=== PATIENT | male | born 1985 | race Hispanic/Latino ===

== ENCOUNTER 2018-06-23 20:27 | Emergency (ER) | payer SELFPAY ==
[2018-06-23] MEDS ORDERED: NACL 0.9% 1000 ML 1,000 ML IV ONE (21:04)
[2018-06-23] MEDS ORDERED: DILAUDID IV ONE (21:04)
--- NOTE | 2018-06-23 21:05 | Emergency Department Report ---
ED General Adult HPI - General Chief complaint: Abdominal Pain Stated complaint: CLOTTING ISSUES Time Seen by Provider: 06/23/18 20:48 Source: patient, EMS (ems notes not available at time of chart dictation), RN notes reviewed, old records reviewed Mode of arrival: Stretcher Limitations: Physical Limitation - History of Present Illness Initial comments: This is a 33-year-old gentleman. The patient has a past medical history of polycythemia vera, chronic pain syndrome, reported history DVT in his right groin, right leg, left arm, and follows with generation mechanic helper, Dr. Nguyen He reports that he does not have an IVC filter. Apparently, the patient was recently hospitalized at [facility], for overdose of uncertain intent. As per care management's documentation, patient was apparently on a toilet, when he allegedly injected 30 mg of Roxicodone into his right antecubital fossa, and became hypoxic, and then fell over onto the left side of his face and left hand. The patient was placed on a 1013 for overdose of uncertain intent. The patient reports that he currently takes systemic anticoagulation, xarelto The patient was medically cleared, and discharged to a psychiatric facility. The patient was sent to the ER today for medical clearance for history of hypertension, with a blood pressure in the 200s at the psychiatric facility. The patient reports that a few days ago, Friday, he developed worsened pain in his right groin and lower abdomen. It is now mostly improved. He currently denies headache, neck pain, chest pain, has persistent lower abdominal pain, and persistent right groin pain. The pain is sharp, burning, aching, increases with palpation and decreases with rest. Patient reports he recently had outpatient ultrasound and possibly MRI, outpatient radiology facility, which demonstrate a presence of "blood clots." He believes that he had a CT scan of the chest recently, which was "negative for blood clots." He reports that he thinks his last CT scan of the abdomen and pelvis was in April, but is not certain. -: Gradual, days(s) Location: abdomen, left, right, lower extremity Radiation: extremity Quality: aching Consistency: intermittent Improves with: medication, rest Worsens with: movement Associated Symptoms: other (chronic pain, anxiety). denies: confusion, chest pain, cough, diaphoresis, fever/chills, headaches, loss of appetite, malaise, nausea/vomiting, rash, seizure, shortness of breath, syncope, weakness - Related Data Home Medications Medication Instructions Recorded Confirmed Last Taken Apixaban [Eliquis] 5 mg PO BID 06/23/18 06/23/18 Unknown Dextroamphetamine/Amphetamine 15 mg PO DAILY 06/23/18 06/23/18 Unknown [Adderall] Docusate Sodium [Colace] 100 mg PO BID PRN 06/23/18 06/23/18 Unknown Ferrous Sulfate [Feosol] 325 mg PO QDAY 06/23/18 06/23/18 Unknown Folic Acid [Folvite] 1 mg PO QDAY 06/23/18 06/23/18 Unknown Gabapentin [Neurontin] 400 mg PO TID 06/23/18 06/23/18 Unknown Ondansetron [Zuplenz] 4 mg PO Q8H PRN 06/23/18 06/23/18 Unknown Pantoprazole [Protonix] 40 mg PO BID 06/23/18 06/23/18 Unknown Prazosin [Minipress] 1 mg PO BID 06/23/18 06/23/18 Unknown Rivaroxaban [Xarelto] 20 mg PO QDAY 06/23/18 06/23/18 Unknown Sucralfate [Carafate] 1 gm PO ACHS 06/23/18 06/23/18 Unknown clonazePAM [Klonopin] 1 tab PO BID 06/23/18 06/23/18 Unknown Allergies Allergy/AdvReac Type Severity Reaction Status Date / Time amoxicillin Allergy Hives Verified 06/23/18 21:14 hydrocodone Allergy Itching Verified 06/23/18 21:14 ED Review of Systems ROS: Stated complaint: CLOTTING ISSUES Other details as noted in HPI Constitutional: denies: fever, malaise, weakness Eyes: denies: eye discharge ENT: denies: epistaxis Respiratory: denies: cough Cardiovascular: denies: chest pain Gastrointestinal: abdominal pain Genitourinary: denies: dysuria Musculoskeletal: arthralgia, myalgia. denies: back pain Skin: denies: lesions Neurological: denies: headache Psychiatric: anxiety ED Past Medical Hx - Medications Home Medications: Home Medications Medication Instructions Recorded Confirmed Last Taken Type Apixaban [Eliquis] 5 mg PO BID 06/23/18 06/23/18 Unknown History Dextroamphetamine/Amphetamine 15 mg PO DAILY 06/23/18 06/23/18 Unknown History [Adderall] Docusate Sodium [Colace] 100 mg PO BID PRN 06/23/18 06/23/18 Unknown History Ferrous Sulfate [Feosol] 325 mg PO QDAY 06/23/18 06/23/18 Unknown History Folic Acid [Folvite] 1 mg PO QDAY 06/23/18 06/23/18 Unknown History Gabapentin [Neurontin] 400 mg PO TID 06/23/18 06/23/18 Unknown History Ondansetron [Zuplenz] 4 mg PO Q8H PRN 06/23/18 06/23/18 Unknown History Pantoprazole [Protonix] 40 mg PO BID 06/23/18 06/23/18 Unknown History Prazosin [Minipress] 1 mg PO BID 06/23/18 06/23/18 Unknown History Rivaroxaban [Xarelto] 20 mg PO QDAY 06/23/18 06/23/18 Unknown History Sucralfate [Carafate] 1 gm PO ACHS 06/23/18 06/23/18 Unknown History clonazePAM [Klonopin] 1 tab PO BID 06/23/18 06/23/18 Unknown History ED Physical Exam - General Limitations: Physical Limitation General appearance: alert, in no apparent distress - Head Head exam: Present: atraumatic, normocephalic - Eye Eye exam: Present: normal appearance, EOMI. Absent: nystagmus - ENT ENT exam: Present: normal exam, normal orophraynx, mucous membranes moist, normal external ear exam - Neck Neck exam: Present: normal inspection, full ROM. Absent: tenderness, mening ismus - Respiratory Respiratory exam: Present: normal lung sounds bilaterally. Absent: respiratory distress - Cardiovascular Cardiovascular Exam: Present: regular rate, normal rhythm, normal heart sounds. Absent: bradycardia, tachycardia, irregular rhythm, systolic murmur, diastolic murmur, rubs, gallop - GI/Abdominal GI/Abdominal exam: Present: soft. Absent: distended, tenderness, guarding, rebound, rigid, pulsatile mass - Rectal Rectal exam: Present: deferred - exam: Present: normal inspection, other (chaperoned by nurse Ghada Pardo). Absent: testicular tenderness External exam: Present: normal external exam - Extremities Exam Extremities exam: Present: normal inspection, full ROM, tenderness (his right proximal groin tenderness.), other (2+ pulses noted in the bilateral upper, lower extremities. Compartments soft. No long bony tenderness. The pelvis is stable.) - Back Exam Back exam: Present: normal inspection, full ROM. Absent: tenderness, CVA tenderness (R), paraspinal tenderness, vertebral tenderness - Neurological Exam Neurological exam: Present: alert, oriented X3, CN II-XII intact, other (Extraocular movements intact. Tongue midline. No facial droop. Facial sensation intact to light touch in the V1, V2, V3 distribution bilaterally. 5 and 5 strength in 4 extremities.. Sensation is intact to light touch in 4 extremities.). Absent: motor sensory deficit - Psychiatric Psychiatric exam: Present: anxious - Skin Skin exam: Present: warm, dry, intact, normal color. Absent: rash ED Course Vital Signs 06/23/18 06/23/18 20:49 21:04 Temperature 98.2 F Pulse Rate 91 H Respiratory 21 16 Rate Blood Pressure 153/95 Blood Pressure 153/95 [Right] O2 Sat by Pulse 99 98 Oximetry - Reevaluation(s) Reevaluation #1: 06/23/18 22:07 Differential diagnosis, including without limited to: Resolved hypertension secondary to pain, arterial occlusion, venous occlusion, thrombophlebitis Assessment and plan: 33-year-old gentleman with reported history of multiple clots, currently on systemic anticoagulation, with resolving subacute abdominal and groin pain. Pulses are palpated in the upper, lower extremities bilaterally. Compartments soft. Has mildly elevated blood pressure in the 150s, which is not require emergent intervention at this time. We will treat the patient's pain. We are attempting to obtain old medical records. We will repeat CT angiogram of the abdomen and pelvis and lower extremities to assess for patency of arterial vasculature. We will reassess after his initial data points. Reevaluation #2: 06/23/18 23:52 Vital signs remained stable, patient in no acute distress, noted to be having a casual conversation with his sitter at this point in time. Reevaluation #3: 06/24/18 00:39 Vital signs have remained stable. The CT scan does not demonstrate any significant intra-abdominal or vascular abnormality that would require emergent intervention. Nonspecific adenopathy noted and appreciated, this can be followed up as an outpatient. ED Medical Decision Making - Lab Data Result diagrams: 06/23/18 21:37 06/23/18 21:37 Vital Signs 06/23/18 20:49 Temperature 98.2 F Pulse Rate 91 H Respiratory 21 Rate Blood Pressure 153/95 Blood Pressure 153/95 [Right] O2 Sat by Pulse 99 Oximetry Lab Results 06/23/18 Range/Units 21:37 WBC 5.7 (4.5-11.0) K/mm3 RBC 5.24 H (3.65-5.03) M/mm3 Hgb 13.9 (11.8-15.2) gm/dl Hct 42.4 (35.5-45.6) % MCV 81 L (84-94) fl MCH 27 L (28-32) pg MCHC 33 (32-34) % RDW 26.7 H (13.2-15.2) % Plt Count 321 (140-440) K/mm3 - EKG Data -: EKG Interpreted by Nh EKG shows normal: sinus rhythm Rate: normal - EKG Data When compared to previous EKG there are: previous EKG unavailable 06/23/18 22:08 Tachycardic, 102 bpm, normal axis, normal intervals, left ventricular voltage, motion artifact, not consistent with ST elevation myocardial infarction. There is no for comparison at this time. - Radiology Data Radiology results: pending Critical care attestation.: If time is entered above; I have spent that time in minutes in the direct care of this critically ill patient, excluding procedure time. ED Disposition Clinical Impression: Elevated blood pressure reading, History of polycythemia Disposition: [id number] PSY HOSP/PSY UNIT Is pt being admited?: No Does the pt Need Aspirin: No Condition: Good Additional Instructions: Continue outpatient medications. Drink plenty of fluids. CT scan of the abdomen and pelvis did not demonstrate any acute intra-abdominal or vascular abnormality that would require emergent intervention or therapy at this point in time. Please follow-up with the patient's primary care doctor or generation mechanic helper within the next 2-3 weeks. Please return to the ER right away with new pain, worsened pain, migration of pain, projectile vomiting, change in mental status, confusion, inability to speak, and inability to breathe, new, worsening or different symptoms. Referrals: PRIMARY CARE, [Primary Care Provider] - 3-5 Days
[2018-06-23 21:52] LABS: Hematocrit 42.4 % (35.5-45.6); Hemoglobin 13.9 gm/dl (11.8-15.2); Mean Corpuscular HGB Conc 33 % (32-34); Mean Corpuscular Volume 81 fl (84-94); Platelet Count 321 K/mm3 (140-440); Red Blood Count 5.24 M/mm3 (3.65-5.03)
[2018-06-23 21:53] LABS: Red Cell Distribution Width 26.7 % (13.2-15.2)
[2018-06-23] MEDS ORDERED: XYLOCAINE CARDIAC IV ONE ×2 (22:01→23:00)
[2018-06-23 22:09] LABS: INR 1.12 (0.87-1.13)
[2018-06-23 22:10] LABS: Partial Thromboplastin Time 31.1 Sec. (24.2-36.6)
[2018-06-23 22:24] LABS: BUN/Creatinine Ratio 10; Blood Urea Nitrogen 8 mg/dL (9-20); Hemolysis Index 33
[2018-06-23] MEDS ORDERED: NACL 0.9% IV ONE (23:00)
--- NOTE | 2018-06-24 00:32 | Cat Scan Report ---
FINAL REPORT PROCEDURE: CT ANGIO ABD/FEMORAL ABD AORTA TECHNIQUE: Computerized axial tomographic angiography of the abdomen and pelvis was performed after the IV injection of iodinated nonionic contrast. The image data was postprocessed using 2-dimensional multiplanar reformatted (MPR) and 3-dimensional (MIP and/or volume rendered) techniques. HISTORY: arterial oclusion with pain COMPARISON: No prior studies are available for comparison. FINDINGS: Abdominal aorta: Normal. Celiac artery: Normal. Superior mesenteric artery: Normal. Left renal artery: Normal. Right renal artery: Normal. Inferior mesenteric artery: Normal Common iliacs: Normal. External iliacs: Normal. Internal iliacs: Normal. Hypervascular masses: Normal. Abdominal and pelvic viscera: There are borderline enlarged lymph nodes in the gastrohepatic ligament . The liver, gallbladder, pancreas, spleen, adrenal glands and kidneys are unremarkable. There is no bowel obstruction, colitis or enteritis. The appendix is normal. There is no ascites or free air, abscess or adenopathy. Other: The iliac bifurcation, the common and external iliac arteries, the common femoral arteries, t he superficial femoral arteries and popliteal arteries and the proximal infrapopliteal arteries bilat erally are patent and normal in caliber. IMPRESSION: There is no aortic aneurysm, dissection, thrombosis or stenosis. There is no lower extremity is arter ial stenosis or occlusion. The visceral branches are patent. There is no acute intra-abdominal abnormality.
[2018-06-24 01:04] VITALS: BP 147/93
== END 2018-06-24 02:43 ==
LOC: ED 20:27
DX: I10 Essential (primary) hypertension (principal); D75.1 Secondary polycythemia; Z88.1 Allergy status to other antibiotic agents; Z88.5 Allergy status to narcotic agent; F41.9 Anxiety disorder, unspecified
CPT/HCPCS: 36415; 75635; 80048; 82140; 82550; 83735; 85027; 85610; 85730; 93005; 93010; 96365; 96375; 99285; J1170; J2001; J7030; Q9967